=== PATIENT | male | born 1970 | race American Indian/Alaskan Native ===

== ENCOUNTER 2018-07-05 15:19 | Emergency (ER) | payer SELFPAY ==
[2018-07-05] MEDS ORDERED: Bacitracin Oint 1 GM U/D Packet TOP ONE (15:31)
[2018-07-05] MEDS ORDERED: Lidocaine 1% 30 ML SDV INJECT ONE (15:31)
[2018-07-05] MEDS ORDERED: Diphtheria,Pertussis(Acell),Tetanus Vaccine 0.5 ML SDV IM ONE (15:31)
--- NOTE | 2018-07-05 17:43 | EDM.PDOC ---
Scribed by Ros Cruz 07/05/18 [id number] for Bashir Poe MD ED HPI GENERAL MEDICAL PROBLEM - General Chief Complaint: Trauma Stated Complaint: FALL Time Seen by Provider: 07/05/18 15:21 Source of Information: Reports: Patient, EMS, EMS Notes Reviewed, RN, RN Notes Reviewed History Limitations: Reports: No Limitations - History of Present Illness INITIAL COMMENTS - FREE TEXT/NARRATIVE: Patient presents to ER by [facility]. Patient tripped and fell on the side walk. He says that he was walking home from [place] after playing horseshoes and drinking alcohol. Denies loss of consciousness. Patient states he wanted to go home but the ambulance made him come here because he was drunk. He denies any other injury. Date of last tetenus is unknown but patient believes it is greater than 10 years. Pt arrived without C-collar or spinal immobilization. GCS 15 on arrival. *Pt refused to wear C-collar when requested by RN and myself. Onset: Unknown/Unsure Location: Reports: Face Quality: Reports: Ache Severity: Mild Improves with: Reports: None Worsens with: Reports: None Associated Symptoms: Reports: No Other Symptoms - Related Data Allergies Allergy/AdvReac Type Severity Reaction Status Date / Time No Known Allergies Allergy Verified 07/05/18 15:23 Past Medical History - Past Health History Medical/Surgical History: Denies Medical/Surgical History Social & Family History - Family History Family Medical History: Noncontributory - Tobacco Use Smoking Status *Q: Current Some Day Smoker - Alcohol Use Alcohol Use History: Yes Alcohol Use Frequency: Binges - Living Situation & Occupation Living situation: Reports: Single, Alone Occupation: Disabled Review of Systems - Review of Systems Review Of Systems: ROS reveals no pertinent complaints other than HPI. ED EXAM, GENERAL - Physical Exam Exam: See Below Exam Limited By: Intoxication General Appearance: Alert, WD/WN, No Apparent Distress Eye Exam: Bilateral Eye: EOMI, Normal Inspection, PERRL Ears: Normal External Exam, Normal Canal, Hearing Grossly Normal, Normal TMs Nose: Normal Inspection, Normal Mucosa, No Blood Throat/Mouth: Normal Inspection, Normal Lips, Normal Teeth, Normal Gums, Normal Oropharynx, Normal Voice, No Airway Compromise Head: Normocephalic, Other (facial abrasion at left forehead, 2cm linear lac. to depth of subcutaneous tissue at Rt zygomal face w/no active bleeding and no FB) Neck: Normal Inspection, Supple, Non-Tender, Full Range of Motion Respiratory/Chest: No Respiratory Distress, Lungs Clear, Normal Breath Sounds, No Accessory Muscle Use, Chest Non-Tender Cardiovascular: Regular Rate, Rhythm GI/Abdominal: Normal Bowel Sounds, Soft, Non-Tender, No Distention Back Exam: Normal Inspection Extremities: Normal Inspection, Normal Range of Motion, Non-Tender, No Pedal Edema Neurological: Alert, Oriented, CN II-XII Intact, Normal Cognition, No Motor/ Sensory Deficits, Other (GCS 15 at 1 hour and at discharge.) Psychiatric: Normal Affect, Normal Mood Skin Exam: Warm, Dry ED TRAUMA PROCEDURES - Laceration/Wound Repair Right Lateral Face Lac/Wound Length In cm: 2 Appearance: Subcutaneous, Linear, Clean Distal NVT: Neuro & Vascular Intact Anesthetic Type: Local Local Anesthesia - Lidocaine (Xylocaine): 1% Plain Local Anesthetic Volume: 5cc Skin Prep: Chlorhexidine (Hibiciens), Saline Exploration/Debridement/Repair: Wound Explored Closed With: Sutures Suture Size: 4-0 # of Sutures: 6 Suture Type: Nylon, Running Drain Placement: No Sterile Dressing Applied: Nurse Tetanus Status Addressed: Yes Complications: No Course - Vital Signs Last Recorded V/S: Last Vital Signs Temp 36.8 C 07/05/18 15:25 Pulse 100 07/05/18 15:25 Resp 18 07/05/18 15:25 BP 128/71 07/05/18 15:25 Pulse Ox 90 L 07/05/18 15:25 - Orders/Labs/Meds Orders: Active Orders 24 hr Category Date Time Status Vaccines to be Administered [RC] PER UNIT ROUTINE Care 07/05/18 15:31 Active Labs: Laboratory Tests 07/05/18 Range/Units 16:27 Ethyl Alcohol 422 mg/dL Meds: Medications Discontinued Medications Generic Name Dose Route Start Last Admin Trade Name Freq PRN Reason Stop Dose Admin Bacitracin 1 dose 07/05/18 15:31 07/05/18 15:45 Bacitracin Oint 1 Gm TOP 07/05/18 15:32 1 dose ONETIME ONE Administration Diphtheria/Tetanus/Acell Pertussis 0.5 ml 07/05/18 15:31 07/05/18 15:41 Adacel IM 07/05/18 15:32 0.5 ml .ONCE ONE Administration Lidocaine HCl 30 ml 07/05/18 15:31 07/05/18 15:45 Xylocaine-Mpf 1% INJECT 07/05/18 15:32 30 ml ONETIME ONE Administration - Radiology Interpretation Free Text/Narrative:: CT head, CT maxillofacial, CT c-spine: No acute findings. See rad report. - Re-Assessments/Exams Free Text/Narrative Re-Assessment/Exam: 07/05/18 17:42 Despite high blood EtOH pt is appropriately conversant, using his cell phone without difficulty, walking steadily, and making rational decisions. Pt will be d/c'd to home if he can product a sober person to drive him and ensure his safety until he is sober. Departure - Departure Time of Disposition: 17:27 Disposition: Home, Self-Care 01 Condition: Good Clinical Impression: Abrasions of multiple sites Laceration of face Qualifiers: Encounter type: initial encounter Qualified Code(s): S01.81XA - Laceration without foreign body of other part of head, initial encounter Alcohol intoxication Qualifiers: Complication of substance-induced condition: uncomplicated Qualified Code(s): F10.920 - Alcohol use, unspecified with intoxication, uncomplicated Minor head injury without loss of consciousness Qualifiers: Encounter type: initial encounter Qualified Code(s): S09.90XA - Unspecified injury of head, initial encounter - Discharge Information Instructions: Facial Laceration, Alcohol Intoxication, [id number] Forms: ED Department Discharge Additional Instructions: Do not drink any more alcohol today. Follow up in clinic in 7 to 10 days for suture removal. - My Orders Last 24 Hours: My Active Orders 07/05/18 15:31 Vaccines to be Administered [RC] PER UNIT ROUTINE - Assessment/Plan Last 24 Hours: My Active Orders 07/05/18 15:31 Vaccines to be Administered [RC] PER UNIT ROUTINE I have read and agree with the documentation that has been completed regarding this visit. By signing this record, I attest that the documentation was completed in my physical presence and is an accurate record of the encounter.
== END 2018-07-05 18:18 | disposition home or self-care (01) ==
LOC: DL.ED 15:19
DX: S09.90XA Unspecified injury of head, initial encounter (principal); S01.81XA Laceration without foreign body of other part of head, initial encounter; F10.120 Alcohol abuse with intoxication, uncomplicated; Y90.8 Blood alcohol level of 240 mg/100 ml or more; Z23 Encounter for immunization; F17.200 Nicotine dependence, unspecified, uncomplicated; W01.0XXA Fall on same level from slipping, tripping and stumbling without subsequent striking against object, initial encounter
CPT/HCPCS: 12011; 36415; 70450; 70486; 72125; 90471; 90715; 99283; 99285; G0480

== ENCOUNTER 2020-09-22 17:58 | Emergency (ER) | payer OTHER ==
--- NOTE | 2020-09-22 18:30 | EDM.PDOC ---
<Ronit Waddell - Last Filed: 09/22/20 18:39> ED HPI GENERAL MEDICAL PROBLEM - General Chief Complaint: ENT Problem Stated Complaint: TOP LEFT TOOTH BLEEDING Time Seen by Provider: 09/22/20 18:15 Source of Information: Reports: Patient, RN, RN Notes Reviewed History Limitations: Reports: No Limitations - History of Present Illness INITIAL COMMENTS - FREE TEXT/NARRATIVE: pt arrives to ED with complaint of dental bleed. reports having top four front teeth extracted at [facility]. since then has had increased bleeding. has been using gauze with pressure, but clots that build up keep breaking away. has not called his dentist. denies pain, reports waking with blood saturated pillow. Onset: Gradual Onset Date: 09/19/20 Location: Reports: Face Severity: Moderate Associated Symptoms: Reports: No Other Symptoms - Related Data Allergies Allergy/AdvReac Type Severity Reaction Status Date / Time No Known Allergies Allergy Verified 11/11/18 11:22 Home Meds: Home Meds Metoprolol Tartrate 50 mg PO BID 11/11/18 [History] Pantoprazole [ProTONIX] 40 mg PO ACBREAKFAST tab.cr 11/11/18 [Rx] Potassium Chloride [Klor-Con 10] 20 meq PO BIDMEALS tab.er 11/11/18 [Rx] cefTRIAXone [Rocephin] 1 gm IV Q24H vial 11/11/18 [Rx] diphenhydrAMINE [Benadryl] 25 mg PO BEDTIME PRN 11/11/18 [History] hydrOXYzine HCL [hydrOXYzine] 50 mg PO DAILY PRN 11/11/18 [History] Aspirin 81 mg PO 09/22/20 [History] Past Medical History - Past Health History Medical/Surgical History: Denies Medical/Surgical History HEENT History: Reports: Impaired Vision Cardiovascular History: Reports: Hypertension Respiratory History: Reports: None Gastrointestinal History: Reports: GERD Genitourinary History: Reports: None Musculoskeletal History: Reports: Fracture Neurological History: Reports: None Psychiatric History: Reports: Addiction, Anxiety, Depression, Panic Attack Endocrine/Metabolic History: Reports: None Hematologic History: Reports: None Immunologic History: Reports: None Oncologic (Cancer) History: Reports: None Dermatologic History: Reports: Eczema - Infectious Disease History Infectious Disease History: Reports: None - Past Surgical History Head Surgeries/Procedures: Reports: None Social & Family History - Family History Family Medical History: Noncontributory - Tobacco Use Tobacco Use Status *Q: Never Tobacco User Second Hand Smoke Exposure: No - Caffeine Use Caffeine Use: Reports: Coffee Caffeine Use Comment: Drinks a soda very seldom - Recreational Drug Use Recreational Drug Use: No - Living Situation & Occupation Living situation: Reports: Single, Alone Occupation: Disabled ED ROS ENT - Review of Systems Review Of Systems: Comprehensive ROS is negative, except as noted in HPI. Constitutional: Reports: No Symptoms Respiratory: Reports: No Symptoms Cardiovascular: Reports: No Symptoms Endocrine: Reports: No Symptoms GI/Abdominal: Reports: No Symptoms. Denies: Vomiting : Reports: No Symptoms Musculoskeletal: Reports: No Symptoms Skin: Reports: No Symptoms Neurological: Reports: No Symptoms Psychiatric: Reports: No Symptoms Hematologic/Lymphatic: Reports: No Symptoms Immunologic: Reports: No Symptoms ED EXAM, ENT - Physical Exam Exam: See Below Exam Limited By: No Limitations General Appearance: Alert, WD/WN, No Apparent Distress Eye Exam: Bilateral Eye: EOMI Ears: Normal External Exam Nose: Normal Inspection Mouth/Throat: Bleeding, Dental Trauma, Other (bleeding to upper front gums at site of dental extractions.) Head: Atraumatic, Normocephalic Neck: Normal Inspection Respiratory/Chest: No Respiratory Distress, Lungs Clear, Normal Breath Sounds Cardiovascular: Normal Peripheral Pulses, Regular Rate, Rhythm, No Edema GI/Abdominal: Normal Bowel Sounds (Male) Exam: Deferred Rectal (Males) Exam: Deferred Extremities: Normal Inspection, Normal Range of Motion Neurological: Alert, Oriented, Normal Cognition, Normal Gait Psychiatric: Normal Affect, Normal Mood Skin: Warm, Dry, Intact, Normal Color, No Rash Lymphatic: No Adenopathy Departure - Departure Disposition: Home, Self-Care 01 Clinical Impression: Status post tooth extraction, Hemorrhage of tooth socket - Discharge Information Forms: ED Department Discharge Additional Instructions: 1) avoid hot foods or drinks next 24 hours 2) recheck as needed 3) have cold foods or baby foods Sepsis Event Note (ED) - Evaluation Sepsis Screening Result: No Definite Risk <Donte España - Last Filed: 09/22/20 21:31> ED ENT PROCEDURES - Additional/Other Procedure(s) Other (Free Text) Procedure(s): re-exam; persistent oozing 1) viscous lido applied to oozing sockets 2) AgNo3 cautery without problem 3) merocel packing with 2x2 applied Course - Vital Signs Last Recorded V/S: Last Vital Signs Temp 36.4 C 09/22/20 18:14 Pulse 78 09/22/20 18:14 Resp 16 09/22/20 18:14 BP 120/65 09/22/20 18:14 Pulse Ox 98 09/22/20 18:14 - Orders/Labs/Meds Labs: Laboratory Tests 09/22/20 09/22/20 09/22/20 Range/Units 19:10 19:10 19:10 WBC 7.4 (5.0-10.0) 10^3/uL RBC 3.85 L (4.6-6.2) 10^6/uL Hgb 12.7 L D (14.0-18.0) g/dL Hct 37.5 L (40.0-54.0) % MCV 97.4 (80-100) fL MCH 33.0 (27.0-34.0) pg MCHC 33.9 (33.0-35.0) g/dL Plt Count 98 L (150-450) 10^3/uL Neut % (Auto) 44.4 (42.2-75.2) % Lymph % (Auto) 42.2 (20.5-50.1) % [place] % (Auto) 9.6 H (2-8) % Eos % (Auto) 3.3 H (1.0-3.0) % Baso % (Auto) 0.5 (0.0-1.0) % PT 13.3 H (9.0-12.0) SEC INR 1.4 H (0.9-1.2) APTT 30.6 (22.0-34.0) SEC Sodium 140 (136-145) mmol/L Potassium 4.4 (3.5-5.1) mmol/L Chloride 107 (98-107) mmol/L Carbon Dioxide 27 (21-32) mmol/L Anion Gap 10.4 (7-13) mEq/L BUN 14 (7-18) mg/dL Creatinine 0.69 L (0.70-1.30) mg/dL Est Cr Clr Drug Dosing 122.54 mL/min Estimated GFR (MDRD) > 60 BUN/Creatinine Ratio 20.3 (No establ ref range) Glucose 107 H (74-99) mg/dL Calcium 8.6 (8.5-10.1) mg/dL Total Bilirubin 1.5 H (0.2-1.0) mg/dL AST 129 H (15-37) U/L ALT 119 H (16-63) U/L Alkaline Phosphatase 136 H (46-116) U/L Total Protein 6.6 (6.4-8.2) g/dL Albumin 2.4 L (3.4-5.0) g/dL Globulin 4.2 Albumin/Globulin Ratio 0.57 Meds: Medications Discontinued Medications Generic Name Dose Route Start Last Admin Trade Name Freq PRN Reason Stop Dose Admin Lidocaine HCl 15 ml 09/22/20 20:37 09/22/20 20:45 Xylocaine 2% Viscous PO 09/22/20 20:38 15 ml ONETIME ONE Administration Silver Nitrate 4 each 09/22/20 20:37 09/22/20 20:45 Silver Nitrate TOP 09/22/20 20:38 4 each ONETIME ONE Administration Tranexamic Acid 500 mg 09/22/20 18:19 09/22/20 18:30 Cyklokapron TOP 09/22/20 18:20 500 mg ONETIME ONE Administration - Re-Assessments/Exams Free Text/Narrative Re-Assessment/Exam: 09/22/20 19:03 re-exam; miinimal oozing. pt not happy and spat out anti-coag packing. area repacked with merocel + 4x4. pt told to gently bite down to compress dressing to stop bleeding. 09/22/20 21:28 re-exam; no further bleeding. pt happy now. Departure - Departure Time of Disposition: 21:29 Condition: Good Sepsis Event Note (ED) - Focused Exam Vital Signs: Vital Signs Temp Pulse Resp BP Pulse Ox 09/22/20 18:14 36.4 C 78 16 120/65 98
[2020-09-22 19:36] LABS: ANION GAP 10.4 mEq/L (7-13); CHLORIDE,CL 107 mmol/L (98-107); SODIUM,NA 140 mmol/L (136-145)
[2020-09-22 20:06] LABS: PTT,PARTIAL THROMBOPLSTIN TIME 30.6 SEC (22.0-34.0)
[2020-09-22] MEDS ORDERED: Silver Nitrate Applicator Each TOP ONE (20:37)
[2020-09-22] MEDS ORDERED: Lidocaine 2% Viscous Solution 15 ML Cup PO ONE (20:37)
== END 2020-09-22 21:34 | disposition home or self-care (01) ==
LOC: DL.ED 17:58
DX: K91.840 Postprocedural hemorrhage of a digestive system organ or structure following a digestive system procedure (principal); I10 Essential (primary) hypertension; K21.9 Gastro-esophageal reflux disease without esophagitis; Z79.899 Other long term (current) drug therapy
CPT/HCPCS: 36415; 80053; 85025; 85610; 85730; 99282; 99283; A9270

== ENCOUNTER 2020-12-09 07:44 | Observation (INO) | payer OTHER ==
[~2020-12-09 07:44] MED LIST: Ondansetron 4 MG/2 ML SDV IV ONE
[2020-12-09] MEDS ORDERED: Sodium Chloride 0.9% 1,000 ML IV ONE (08:10)
--- NOTE | 2020-12-09 08:10 | EDM.PDOC ---
ED HPI GENERAL MEDICAL PROBLEM - General Chief Complaint: Gastrointestinal Problem Time Seen by Provider: 12/09/20 08:10 Source of Information: Reports: Patient, EMS, EMS Notes Reviewed, RN, RN Notes Reviewed History Limitations: Reports: No Limitations - History of Present Illness INITIAL COMMENTS - FREE TEXT/NARRATIVE: Patient is a 50-year-old male who presents to ER per [place] [facility] with complaint of generalized not feeling well. Patient states he has not been feeling well for the past 2 days. States he has not had any alcohol to drink for several weeks, states he does not drink on a regular basis. Patient states he did have a bloody nose earlier in the day, and today when he vomited did have a small amount of blood in the vomit. Otherwise has been vomiting bile for the past 2 days. Patient also complains of body aches, and states he has never felt this terrible in his life. Patient is unsure of when his last bowel movement was, states there was no blood in it. Denies any chest pains or shortness of breath, diarrhea, fever or chills. Patient states he is homeless, and states there is no one to take care of him. Onset: Gradual Onset Date: 12/07/20 - Related Data Allergies Allergy/AdvReac Type Severity Reaction Status Date / Time No Known Allergies Allergy Verified 12/09/20 07:47 Home Meds: Home Meds . [No Known Home Meds] 12/09/20 [History] Past Medical History - Past Health History Medical/Surgical History: Denies Medical/Surgical History HEENT History: Reports: Impaired Vision Cardiovascular History: Reports: Hypertension Respiratory History: Reports: None Gastrointestinal History: Reports: GERD Genitourinary History: Reports: None Musculoskeletal History: Reports: Fracture Neurological History: Reports: None Psychiatric History: Reports: Addiction, Anxiety, Depression, Panic Attack Endocrine/Metabolic History: Reports: None Hematologic History: Reports: None Immunologic History: Reports: None Oncologic (Cancer) History: Reports: None Dermatologic History: Reports: Eczema - Infectious Disease History Infectious Disease History: Reports: None - Past Surgical History Head Surgeries/Procedures: Reports: None Social & Family History - Family History Family Medical History: No Pertinent Family History - Tobacco Use Tobacco Use Status *Q: Never Tobacco User - Caffeine Use Caffeine Use: Reports: Coffee Caffeine Use Comment: Drinks a soda very seldom - Alcohol Use Days Per Week of Alcohol Use: 1 Number of Drinks Per Day: 3 Total Drinks Per Week: 3 - Recreational Drug Use Recreational Drug Use: No - Living Situation & Occupation Living situation: Reports: Single, Alone Occupation: Disabled ED ROS GENERAL - Review of Systems Review Of Systems: Comprehensive ROS is negative, except as noted in HPI. ED EXAM, GI/ABD - Physical Exam Exam: See Below Exam Limited By: No Limitations General Appearance: Alert, WD/WN, Anxious Eyes: Bilateral: Normal Appearance, EOMI Ears: Normal External Exam, Hearing Grossly Normal Nose: Other (dried blood) Throat/Mouth: Normal Inspection, Normal Lips, Normal Teeth, Normal Gums, Normal Oropharynx, Normal Voice, No Airway Compromise Head: Atraumatic, Normocephalic Neck: Normal Inspection, Supple, Non-Tender, Full Range of Motion Respiratory/Chest: No Respiratory Distress, Lungs Clear, Normal Breath Sounds, No Accessory Muscle Use, Chest Non-Tender Cardiovascular: Normal Peripheral Pulses, Regular Rate, Rhythm, No Edema, No Gallop, No JVD, No Murmur, No Rub GI/Abdominal Exam: Normal Bowel Sounds, Soft, Distended, Tender (generalized) (Male) Exam: Deferred Rectal (Males) Exam: Deferred Back Exam: Normal Inspection, Full Range of Motion, NT Extremities: Normal Inspection, Normal Range of Motion, Non-Tender, No Pedal Edema Neurological: Alert, Oriented, Normal Cognition, No Motor/Sensory Deficits Psychiatric: Normal Affect, Normal Mood, Anxious Skin Exam: Pallor Lymphatic: No Adenopathy Course - Vital Signs Last Recorded V/S: Last Vital Signs Temp 99 F 12/09/20 07:45 Pulse 101 H 12/09/20 09:00 Resp 16 12/09/20 09:00 BP 179/92 H 12/09/20 09:00 Pulse Ox 96 12/09/20 09:00 - Orders/Labs/Meds Orders: Active Orders 24 hr Category Date Time Status EKG Documentation Completion [RC] STAT Care 12/09/20 07:41 Active REFLEX LACTIC ACID YES OR NO [CHEM] Routine Lab 12/09/20 08:42 Received UA W/KAL RFLX IF INDICATED [URIN] Stat Lab 12/09/20 11:00 Received Magnesium Sulfate/D5W [Magnesium Sulfate in D5W 100 Med 12/09/20 10:52 Active Premix] 1 gm in 100 ml IV ONETIME Sodium Chloride 0.9% [Normal Saline] 1,000 ml Med 12/09/20 08:10 Active IV CONTINUOUS Isolation [COMM] Routine Oth 12/09/20 07:41 Active Medication Orders Sodium Chloride (Normal Saline) 1,000 mls @ 250 mls/hr IV CONTINUOUS ONE Stop: 12/09/20 12:09 Last Admin: 12/09/20 08:20 Dose: 250 mls/hr Documented by: GLORIA Magnesium Sulfate/Dextrose (Magnesium Sulfate In D5w 100 Premix) 1 gm in 100 mls @ 100 mls/hr IV ONETIME ONE Stop: 12/09/20 11:51 Last Admin: 12/09/20 11:00 Dose: 100 mls/hr Documented by: GLORIA Labs: Laboratory Tests 12/09/20 12/09/20 12/09/20 Range/Units 07:41 08:03 08:03 WBC 4.1 L (5.0-10.0) 10^3/uL RBC 4.12 L (4.6-6.2) 10^6/uL Hgb 11.2 L D (14.0-18.0) g/dL Hct 33.4 L (40.0-54.0) % MCV 81.1 D (80-100) fL MCH 27.2 (27.0-34.0) pg MCHC 33.5 (33.0-35.0) g/dL Plt Count 34 L* (150-450) 10^3/uL Neut % (Auto) 55.2 (42.2-75.2) % Lymph % (Auto) 24.5 (20.5-50.1) % Titus % (Auto) 18.4 H (2-8) % Eos % (Auto) 1.2 (1.0-3.0) % Baso % (Auto) 0.7 (0.0-1.0) % PT (9.0-12.0) SEC INR (0.9-1.2) Sodium 136 (136-145) mmol/L Potassium 3.3 L (3.5-5.1) mmol/L Chloride 99 (98-107) mmol/L Carbon Dioxide 24 (21-32) mmol/L Anion Gap 16.3 H (7-13) mEq/L BUN 7 (7-18) mg/dL Creatinine 0.80 (0.70-1.30) mg/dL Est Cr Clr Drug Dosing 105.69 mL/min Estimated GFR (MDRD) > 60 BUN/Creatinine Ratio 8.8 (No establ ref range) Glucose 116 H (74-99) mg/dL Lactic Acid (0.4-2.0) mmol/L Calcium 8.4 L (8.5-10.1) mg/dL Magnesium 1.5 L (1.8-2.4) mg/dL Total Bilirubin 2.4 H (0.2-1.0) mg/dL AST 83 H (15-37) U/L ALT 55 (16-63) U/L Alkaline Phosphatase 117 H (46-116) U/L C-Reactive Protein 0.8 (0.0-0.9) mg/dL Total Protein 7.8 (6.4-8.2) g/dL Albumin 3.2 L (3.4-5.0) g/dL Globulin 4.6 Albumin/Globulin Ratio 0.70 Amylase 63 (25-115) U/L Lipase 103 (73-393) U/L Ethyl Alcohol (0) mg/dL Influenza Type A RNA Negative (NEGATIVE) Influenza Type B RNA Negative (NEGATIVE) SARS-CoV-2 RNA (IRINEO) Negative (NEGATIVE) 12/09/20 12/09/20 12/09/20 Range/Units 08:03 08:03 08:03 WBC (5.0-10.0) 10^3/uL RBC (4.6-6.2) 10^6/uL Hgb (14.0-18.0) g/dL Hct (40.0-54.0) % MCV (80-100) fL MCH (27.0-34.0) pg MCHC (33.0-35.0) g/dL Plt Count (150-450) 10^3/uL Neut % (Auto) (42.2-75.2) % Lymph % (Auto) (20.5-50.1) % Titus % (Auto) (2-8) % Eos % (Auto) (1.0-3.0) % Baso % (Auto) (0.0-1.0) % PT 13.5 H (9.0-12.0) SEC INR 1.4 H (0.9-1.2) Sodium (136-145) mmol/L Potassium (3.5-5.1) mmol/L Chloride (98-107) mmol/L Carbon Dioxide (21-32) mmol/L Anion Gap (7-13) mEq/L BUN (7-18) mg/dL Creatinine (0.70-1.30) mg/dL Est Cr Clr Drug Dosing mL/min Estimated GFR (MDRD) BUN/Creatinine Ratio (No establ ref range) Glucose (74-99) mg/dL Lactic Acid 2.4 H* (0.4-2.0) mmol/L Calcium (8.5-10.1) mg/dL Magnesium (1.8-2.4) mg/dL Total Bilirubin (0.2-1.0) mg/dL AST (15-37) U/L ALT (16-63) U/L Alkaline Phosphatase (46-116) U/L C-Reactive Protein (0.0-0.9) mg/dL Total Protein (6.4-8.2) g/dL Albumin (3.4-5.0) g/dL Globulin Albumin/Globulin Ratio Amylase (25-115) U/L Lipase (73-393) U/L Ethyl Alcohol < 3 (0) mg/dL Influenza Type A RNA (NEGATIVE) Influenza Type B RNA (NEGATIVE) SARS-CoV-2 RNA (IRINEO) (NEGATIVE) Meds: Medications Generic Name Dose Route Start Last Admin Trade Name Freq PRN Reason Stop Dose Admin Sodium Chloride 1,000 mls @ 250 mls/hr 12/09/20 08:10 12/09/20 08:20 Normal Saline IV 12/09/20 12:09 250 mls/hr CONTINUOUS ONE Administration Magnesium Sulfate/Dextrose 1 gm in 100 mls @ 100 mls/hr 12/09/20 10:52 12/09/20 11:00 Magnesium Sulfate In D5w 100 Premix IV 12/09/20 11:51 100 mls/hr ONETIME ONE Administration Discontinued Medications Generic Name Dose Route Start Last Admin Trade Name Freq PRN Reason Stop Dose Admin Iopamidol 100 ml 12/09/20 09:18 12/09/20 09:40 Isovue-300 (61%) IVPUSH 12/09/20 09:19 100 ml ONETIME ONE Administration Ondansetron HCl 4 mg 12/09/20 07:39 12/09/20 07:58 Zofran IV 12/09/20 07:40 4 mg ONETIME ONE Administration - Radiology Interpretation Free Text/Narrative:: CT of Abdomen/Pelvis with contrast: Addendum created by Bharti Murguia MD on 12/09/2020 10:23 AM Central Time ([place] & [place]): THIS REPORT CONTAINS FINDINGS THAT MAY BE CRITICAL TO PATIENT CARE. The findings were verbally communicated via telephone conference with Genesis Meléndez at 10:05 AM MINE ENGINEERING MANAGER on 12/09/2020. The findings were acknowledged and understood. Initial Report created on 12/09/2020 10:23 AM Central Time ([place] & [place]): PROCEDURE INFORMATION: Exam: CT Abdomen And Pelvis With Contrast Exam date and time: 12/09/2020 9:35 AM Age: 50 years old Clinical indication: Abdominal pain TECHNIQUE: Imaging protocol: Computed tomography of the abdomen and pelvis with intravenous contrast. Radiation optimization: All CT scans at this facility use at least one of these dose optimization techniques: automated exposure control; mA and/or kV adjustment per patient size (includes targeted exams where dose is matched to clinical indication); or iterative reconstruction. Contrast material: ISOVUE 300; Contrast volume: 99 ml; Contrast route: INTRAVENOUS (IV); COMPARISON: No relevant prior studies available. FINDINGS: Mediastinal space: Small hiatal hernia. Liver: Irregular hepatic contour. Hepatic sagittal length 12 cm. There is a diffuse decrease in hepatic parenchymal density, consistent with advanced fatty infiltration. There is recannulization of the umbilical vein with anterior abdominal varices. Gallbladder and bile ducts: Small gallstones at the gallbladder neck. No ductal dilation. Pancreas: Normal. No ductal dilation. Spleen: Sagittal length 9.2 cm. Normal. No splenomegaly. Adrenal glands: Left adrenal hyperplasia or underlying adrenal mass. Normal right adrenal. Kidneys and ureters: Left anterior lower pole 4.7 x 4.9 x 5.7 cm solid complex mass (38 and 48 HU) with lower pole partially circumferential calcifications. 7.5 mm left midpole renal hypodensity too small to accurately assess, statistically compatible with renal cyst. Normal right kidney. No hydronephrosis. Stomach and bowel: Colonic gas-filled loops with nonspecific air-fluid levels. Mild to moderate rectal sigmoid stool load. No obstruction. Normal stomach. No mucosal thickening. Appendix: No evidence of appendicitis. Intraperitoneal space: Unremarkable. No free air. No significant fluid collection. Vasculature: Normal opacification of the portal vein. No superior mesenteric vein thrombosis. No abdominal aortic aneurysm. Lymph nodes: Unremarkable. No enlarged lymph nodes. Urinary bladder: Unremarkable as visualized. Reproductive: Unremarkable as visualized. Bones/joints: L5-S1 degenerative disc disease. Thoracolumbar bridging spondylosis. Multilevel L3- S1 spondylitic changes. No acute fracture. Soft tissues: Unremarkable. IMPRESSION: 1. Cirrhotic liver disease, recannulization of the umbilical vein and abdominal varices compatible with portal hypertension. No ascites. 2. Left 5.7 cm solid complex renal mass. Differential includes renal carcinoma or neoplasm. Recommend further characterization with renal MRI w/wo contrast. 3. Left adrenal gland hyperplasia or neoplasm. Correlate with MRI. 4. Rectosigmoid stool with proximal colonic dilated bowel loops. Correlate for constipation. Thank you for allowing us to participate in the care of your patient. Dictated and Authenticated by: Bharti Sanchez MD 12/09/2020 10:23 AM Central Time ([place] & [place]) See rad report - Re-Assessments/Exams Free Text/Narrative Re-Assessment/Exam: 12/09/20 11:11 Discussed patient case with Dr. Cortes at the [facility] who states they have no ENT, so he would like the patient transferred elsewhere. Discussed the patient case with Dr. Taylor who states the patient can be hospitalized in [place] as long as approved by Dr. Bob. Discussed patient case with Dr. Bob who agreed to accept the patient for observation admission. Departure - Departure Time of Disposition: 11:14 Disposition: Refer to Observation Condition: Fair Clinical Impression: Chronic liver disease and cirrhosis, Portal hypertension, Intra-abdominal varices, Left renal mass Constipation Qualifiers: Constipation type: unspecified constipation type Qualified Code(s): K59.00 - Constipation, unspecified - Discharge Information *PRESCRIPTION DRUG MONITORING PROGRAM REVIEWED*: No *COPY OF PRESCRIPTION DRUG MONITORING REPORT IN PATIENT MARKOS: No Forms: ED Department Discharge Sepsis Event Note (ED) - Evaluation Sepsis Screening Result: No Definite Risk - Focused Exam Vital Signs: Vital Signs Temp Pulse Resp BP Pulse Ox 12/09/20 09:00 101 H 16 179/92 H 96 12/09/20 07:45 99 F 101 H 16 156/84 H 97 - My Orders Last 24 Hours: My Active Orders 12/09/20 07:41 EKG Documentation Completion [RC] STAT Isolation [COMM] Routine 12/09/20 08:10 Sodium Chloride 0.9% [Normal Saline] 1,000 ml IV CONTINUOUS 12/09/20 08:42 REFLEX LACTIC ACID YES OR NO [CHEM] Routine 12/09/20 10:52 Magnesium Sulfate/D5W [Magnesium Sulfate in D5W 100 Premix] 1 gm in 100 ml IV ONETIME 12/09/20 11:00 UA W/KAL RFLX IF INDICATED [URIN] Stat - Assessment/Plan Last 24 Hours: My Active Orders 12/09/20 07:41 EKG Documentation Completion [RC] STAT Isolation [COMM] Routine 12/09/20 08:10 Sodium Chloride 0.9% [Normal Saline] 1,000 ml IV CONTINUOUS 12/09/20 08:42 REFLEX LACTIC ACID YES OR NO [CHEM] Routine 12/09/20 10:52 Magnesium Sulfate/D5W [Magnesium Sulfate in D5W 100 Premix] 1 gm in 100 ml IV ONETIME 12/09/20 11:00 UA W/KAL RFLX IF INDICATED [URIN] Stat
[2020-12-09 08:32] LABS: ANION GAP 16.3 mEq/L (7-13); CHLORIDE,CL 99 mmol/L (98-107); SODIUM,NA 136 mmol/L (136-145)
[2020-12-09 08:35] LABS: CORONAVIRUS COVID-19 NAA NEGATIVE (NEGATIVE)
[2020-12-09] MEDS ORDERED: Iopamidol 612 MG/ML 100 ML Bottle IVPUSH ONE (09:18)
--- NOTE | 2020-12-09 10:23 | CT ---
PROCEDURE INFORMATION: Exam: CT Abdomen And Pelvis With Contrast Exam date and time: 12/09/2020 9:35 AM Age: 50 years old Clinical indication: Abdominal pain TECHNIQUE: Imaging protocol: Computed tomography of the abdomen and pelvis with intravenous contrast. Radiation optimization: All CT scans at this facility use at least one of these dose optimization techniques: automated exposure control; mA and/or kV adjustment per patient size (includes targeted exams where dose is matched to clinical indication); or iterative reconstruction. Contrast material: ISOVUE 300; Contrast volume: 99 ml; Contrast route: INTRAVENOUS (IV); COMPARISON: No relevant prior studies available. FINDINGS: Mediastinal space: Small hiatal hernia. Liver: Irregular hepatic contour. Hepatic sagittal length 12 cm. There is a diffuse decrease in hepatic parenchymal density, consistent with advanced fatty infiltration. There is recannulization of the umbilical vein with anterior abdominal varices. Gallbladder and bile ducts: Small gallstones at the gallbladder neck. No ductal dilation. Pancreas: Normal. No ductal dilation. Spleen: Sagittal length 9.2 cm. Normal. No splenomegaly. Adrenal glands: Left adrenal hyperplasia or underlying adrenal mass. Normal right adrenal. Kidneys and ureters: Left anterior lower pole 4.7 x 4.9 x 5.7 cm solid complex mass (38 and 48 HU) with lower pole partially circumferential calcifications. 7.5 mm left midpole renal hypodensity too small to accurately assess, statistically compatible with renal cyst. Normal right kidney. No hydronephrosis. Stomach and bowel: Colonic gas-filled loops with nonspecific air-fluid levels. Mild to moderate rectal sigmoid stool load. No obstruction. Normal stomach. No mucosal thickening. Appendix: No evidence of appendicitis. Intraperitoneal space: Unremarkable. No free air. No significant fluid collection. Vasculature: Normal opacification of the portal vein. No superior mesenteric vein thrombosis. No abdominal aortic aneurysm. Lymph nodes: Unremarkable. No enlarged lymph nodes. Urinary bladder: Unremarkable as visualized. Reproductive: Unremarkable as visualized. Bones/joints: L5-S1 degenerative disc disease. Thoracolumbar bridging spondylosis. Multilevel L3-S1 spondylitic changes. No acute fracture. Soft tissues: Unremarkable. IMPRESSION: 1. Cirrhotic liver disease, recannulization of the umbilical vein and abdominal varices compatible with portal hypertension. No ascites. 2. Left 5.7 cm solid complex renal mass. Differential includes renal carcinoma or neoplasm. Recommend further characterization with renal MRI w/wo contrast. 3. Left adrenal gland hyperplasia or neoplasm. Correlate with MRI. 4. Rectosigmoid stool with proximal colonic dilated bowel loops. Correlate for constipation.
[2020-12-09] MEDS ORDERED: Magnesium Sulfate/D5W 1 GM/100 ML BAG IV ONE (10:52)
[2020-12-09] MEDS ORDERED: LORazepam 2 MG/ML SDV IVPUSH PRN (13:26)
[2020-12-09] MEDS ORDERED: LORazepam 0.5 MG Tab PO PRN (13:26)
[2020-12-09] MEDS ORDERED: Docusate Sodium 100 MG Cap PO PRN (13:27)
[2020-12-09] MEDS ORDERED: Temazepam 15 MG Cap PO PRN (13:27)
[2020-12-09] MEDS ORDERED: Ondansetron 4 MG/2 ML SDV IVPUSH PRN (13:27)
[2020-12-09] MEDS ORDERED: Ondansetron 4 MG Tab.DIS PO PRN (13:27)
[2020-12-09] MEDS ORDERED: Potassium Chloride 10 MEQ Tab.ER PO ONE (13:33)
[2020-12-09] MEDS ORDERED: Lactulose Soln 10 GM/15 ML 30 ML UD Cup PO ONE (13:35)
--- NOTE | 2020-12-09 13:41 | PCM.HP ---
H&P History of Present Illness - General Date of Service: 12/09/20 Admit Problem/Dx: Admission Diagnosis/Problem Admission Diagnosis/Problem Epistaxis Source of Information: Patient, Provider - History of Present Illness Initial Comments - Free Text/Narative: 50-year-old with a history of alcohol abuse, hypertension. The patient is homeless. Presented to the emergency room with the nausea, vomiting, mid abdominal discomfort. he denies fever or chills. He said his last bowel movement was yesterday. He says he did not drink alcohol for about 6 days. He was in alcohol treatment about a year ago in [facility]. Has been drinking on and off 6-18 beers a day since. had nose bleed that has stopped by now. - Related Data Allergies/Adverse Reactions: Allergies Allergy/AdvReac Type Severity Reaction Status Date / Time No Known Allergies Allergy Verified 12/09/20 07:47 Home Medications: Home Meds . [No Known Home Meds] 12/09/20 [History] Past Medical History - Past Health History Medical/Surgical History: Denies Medical/Surgical History HEENT History: Reports: Impaired Vision Cardiovascular History: Reports: Hypertension Respiratory History: Reports: None Gastrointestinal History: Reports: GERD Genitourinary History: Reports: None Musculoskeletal History: Reports: Fracture Neurological History: Reports: None Psychiatric History: Reports: Addiction, Anxiety, Depression, Panic Attack Endocrine/Metabolic History: Reports: None Hematologic History: Reports: None Immunologic History: Reports: None Oncologic (Cancer) History: Reports: None Dermatologic History: Reports: Eczema - Infectious Disease History Infectious Disease History: Reports: None - Past Surgical History Head Surgeries/Procedures: Reports: None Social & Family History - Family History Family Medical History: No Pertinent Family History - Tobacco Use Tobacco Use Status *Q: Never Tobacco User Second Hand Smoke Exposure: No - Caffeine Use Caffeine Use: Reports: Coffee, Tea Caffeine Use Comment: Drinks a soda very seldom - Alcohol Use Days Per Week of Alcohol Use: 7 Number of Drinks Per Day: 8 Total Drinks Per Week: 56 Date of Last Drink: 12/04/20 - Recreational Drug Use Recreational Drug Use: No - Living Situation & Occupation Living situation: Reports: Single, Alone Occupation: Disabled H&P Review of Systems - Review of Systems: Review Of Systems: See Below General: Reports: Malaise, Weakness. Denies: Fever, Chills Pulmonary: Denies: Shortness of Breath, Wheezing Gastrointestinal: Reports: Abdominal Pain. Denies: Black Stool, Bloody Stool Genitourinary: Denies: Dysuria Psychiatric: Denies: Confusion Neurological: Denies: Dizziness Exam - Exam Exam: See Below - Vital Signs Vital Signs: Last Vital Signs Temp 99 F 12/09/20 07:45 Pulse 101 H 12/09/20 09:00 Resp 16 12/09/20 09:00 BP 179/92 H 12/09/20 09:00 Pulse Ox 96 12/09/20 09:00 Weight: 197 lb 6.4 oz - Exam General: Alert, Oriented Neck: Supple Lungs: Clear to Auscultation, Normal Respiratory Effort Cardiovascular: Regular Rate, Regular Rhythm GI/Abdominal Exam: Normal Bowel Sounds, Soft, Non-Tender, Other (obese) Extremities: No Pedal Edema - Patient Data Lab Results Last 24 hrs: Laboratory Results - last 24 hr 12/09/20 12/09/20 12/09/20 Range/Units 07:41 08:03 08:03 WBC 4.1 L (5.0-10.0) 10^3/uL RBC 4.12 L (4.6-6.2) 10^6/uL Hgb 11.2 L D (14.0-18.0) g/dL Hct 33.4 L (40.0-54.0) % MCV 81.1 D (80-100) fL MCH 27.2 (27.0-34.0) pg MCHC 33.5 (33.0-35.0) g/dL Plt Count 34 L* (150-450) 10^3/uL Neut % (Auto) 55.2 (42.2-75.2) % Lymph % (Auto) 24.5 (20.5-50.1) % Graves % (Auto) 18.4 H (2-8) % Eos % (Auto) 1.2 (1.0-3.0) % Baso % (Auto) 0.7 (0.0-1.0) % PT (9.0-12.0) SEC INR (0.9-1.2) Sodium 136 (136-145) mmol/L Potassium 3.3 L (3.5-5.1) mmol/L Chloride 99 (98-107) mmol/L Carbon Dioxide 24 (21-32) mmol/L Anion Gap 16.3 H (7-13) mEq/L BUN 7 (7-18) mg/dL Creatinine 0.80 (0.70-1.30) mg/dL Est Cr Clr Drug Dosing 105.69 mL/min Estimated GFR (MDRD) > 60 BUN/Creatinine Ratio 8.8 (No establ ref range) Glucose 116 H (74-99) mg/dL Lactic Acid (0.4-2.0) mmol/L Calcium 8.4 L (8.5-10.1) mg/dL Magnesium 1.5 L (1.8-2.4) mg/dL Total Bilirubin 2.4 H (0.2-1.0) mg/dL AST 83 H (15-37) U/L ALT 55 (16-63) U/L Alkaline Phosphatase 117 H (46-116) U/L C-Reactive Protein 0.8 (0.0-0.9) mg/dL Total Protein 7.8 (6.4-8.2) g/dL Albumin 3.2 L (3.4-5.0) g/dL Globulin 4.6 Albumin/Globulin Ratio 0.70 Amylase 63 (25-115) U/L Lipase 103 (73-393) U/L Urine Color (YELLOW) Urine Appearance (CLEAR) Urine pH (5.0-9.0) Ur Specific [place] (1.005-1.030) Urine Protein (NEGATIVE) Urine Glucose (UA) (NEGATIVE) Urine Ketones (NEGATIVE) Urine Occult Blood (NEGATIVE) Urine Nitrite (NEGATIVE) Urine Bilirubin (NEGATIVE) Urine Urobilinogen (0.2-1.0) mg/dL Ur Leukocyte Esterase (NEGATIVE) Urine RBC /HPF Urine WBC (0-5/HPF) /HPF Ur Epithelial Cells (NOT SEEN) /HPF Ethyl Alcohol (0) mg/dL Influenza Type A RNA Negative (NEGATIVE) Influenza Type B RNA Negative (NEGATIVE) SARS-CoV-2 RNA (IRINEO) Negative (NEGATIVE) 12/09/20 12/09/20 12/09/20 Range/Units 08:03 08:03 08:03 WBC (5.0-10.0) 10^3/uL RBC (4.6-6.2) 10^6/uL Hgb (14.0-18.0) g/dL Hct (40.0-54.0) % MCV (80-100) fL MCH (27.0-34.0) pg MCHC (33.0-35.0) g/dL Plt Count (150-450) 10^3/uL Neut % (Auto) (42.2-75.2) % Lymph % (Auto) (20.5-50.1) % Graves % (Auto) (2-8) % Eos % (Auto) (1.0-3.0) % Baso % (Auto) (0.0-1.0) % PT 13.5 H (9.0-12.0) SEC INR 1.4 H (0.9-1.2) Sodium (136-145) mmol/L Potassium (3.5-5.1) mmol/L Chloride (98-107) mmol/L Carbon Dioxide (21-32) mmol/L Anion Gap (7-13) mEq/L BUN (7-18) mg/dL Creatinine (0.70-1.30) mg/dL Est Cr Clr Drug Dosing mL/min Estimated GFR (MDRD) BUN/Creatinine Ratio (No establ ref range) Glucose (74-99) mg/dL Lactic Acid 2.4 H* (0.4-2.0) mmol/L Calcium (8.5-10.1) mg/dL Magnesium (1.8-2.4) mg/dL Total Bilirubin (0.2-1.0) mg/dL AST (15-37) U/L ALT (16-63) U/L Alkaline Phosphatase (46-116) U/L C-Reactive Protein (0.0-0.9) mg/dL Total Protein (6.4-8.2) g/dL Albumin (3.4-5.0) g/dL Globulin Albumin/Globulin Ratio Amylase (25-115) U/L Lipase (73-393) U/L Urine Color (YELLOW) Urine Appearance (CLEAR) Urine pH (5.0-9.0) Ur Specific [place] (1.005-1.030) Urine Protein (NEGATIVE) Urine Glucose (UA) (NEGATIVE) Urine Ketones (NEGATIVE) Urine Occult Blood (NEGATIVE) Urine Nitrite (NEGATIVE) Urine Bilirubin (NEGATIVE) Urine Urobilinogen (0.2-1.0) mg/dL Ur Leukocyte Esterase (NEGATIVE) Urine RBC /HPF Urine WBC (0-5/HPF) /HPF Ur Epithelial Cells (NOT SEEN) /HPF Ethyl Alcohol < 3 (0) mg/dL Influenza Type A RNA (NEGATIVE) Influenza Type B RNA (NEGATIVE) SARS-CoV-2 RNA (IRINEO) (NEGATIVE) 12/09/20 12/09/20 Range/Units 11:00 12:40 WBC (5.0-10.0) 10^3/uL RBC (4.6-6.2) 10^6/uL Hgb (14.0-18.0) g/dL Hct (40.0-54.0) % MCV (80-100) fL MCH (27.0-34.0) pg MCHC (33.0-35.0) g/dL Plt Count (150-450) 10^3/uL Neut % (Auto) (42.2-75.2) % Lymph % (Auto) (20.5-50.1) % Graves % (Auto) (2-8) % Eos % (Auto) (1.0-3.0) % Baso % (Auto) (0.0-1.0) % PT (9.0-12.0) SEC INR (0.9-1.2) Sodium (136-145) mmol/L Potassium (3.5-5.1) mmol/L Chloride (98-107) mmol/L Carbon Dioxide (21-32) mmol/L Anion Gap (7-13) mEq/L BUN (7-18) mg/dL Creatinine (0.70-1.30) mg/dL Est Cr Clr Drug Dosing mL/min Estimated GFR (MDRD) BUN/Creatinine Ratio (No establ ref range) Glucose (74-99) mg/dL Lactic Acid 1.5 (0.4-2.0) mmol/L Calcium (8.5-10.1) mg/dL Magnesium (1.8-2.4) mg/dL Total Bilirubin (0.2-1.0) mg/dL AST (15-37) U/L ALT (16-63) U/L Alkaline Phosphatase (46-116) U/L C-Reactive Protein (0.0-0.9) mg/dL Total Protein (6.4-8.2) g/dL Albumin (3.4-5.0) g/dL Globulin Albumin/Globulin Ratio Amylase (25-115) U/L Lipase (73-393) U/L Urine Color Yellow (YELLOW) Urine Appearance Clear (CLEAR) Urine pH 7.5 (5.0-9.0) Ur Specific [place] 1.015 (1.005-1.030) Urine Protein Negative (NEGATIVE) Urine Glucose (UA) Negative (NEGATIVE) Urine Ketones 15 H (NEGATIVE) Urine Occult Blood Trace-intact H (NEGATIVE) Urine Nitrite Negative (NEGATIVE) Urine Bilirubin Negative (NEGATIVE) Urine Urobilinogen 1.0 (0.2-1.0) mg/dL Ur Leukocyte Esterase Negative (NEGATIVE) Urine RBC 0-5 /HPF Urine WBC 0-5 (0-5/HPF) /HPF Ur Epithelial Cells Not seen (NOT SEEN) /HPF Ethyl Alcohol (0) mg/dL Influenza Type A RNA (NEGATIVE) Influenza Type B RNA (NEGATIVE) SARS-CoV-2 RNA (IRINEO) (NEGATIVE) Result Diagrams: 12/09/20 08:03 12/09/20 08:03 - Problem List (1) Alcohol addiction SNOMED Code(s): 35802602 ICD Code: F10.20 - ALCOHOL DEPENDENCE, UNCOMPLICATED Status: Acute Current Visit: Yes (2) Hypertension SNOMED Code(s): 43538452 ICD Code: I10 - ESSENTIAL (PRIMARY) HYPERTENSION Status: Acute Current Visit: Yes (3) Chronic liver disease and cirrhosis SNOMED Code(s): 623849642 ICD Code: K74.60 - UNSPECIFIED CIRRHOSIS OF LIVER; K76.9 - LIVER DISEASE, UNSPECIFIED Status: Acute Current Visit: No (4) Constipation SNOMED Code(s): 53201781 ICD Code: K59.00 - CONSTIPATION, UNSPECIFIED Status: Acute Current Visit: No Qualifiers: Constipation type: unspecified constipation type Qualified Code(s): K59.00 - Constipation, unspecified (5) Intra-abdominal varices SNOMED Code(s): 851955474 ICD Code: I86.8 - VARICOSE VEINS OF OTHER SPECIFIED SITES Status: Acute Current Visit: No (6) Left renal mass SNOMED Code(s): 680698182 ICD Code: N28.89 - OTHER SPECIFIED DISORDERS OF KIDNEY AND URETER Status: Acute Current Visit: No (7) Portal hypertension SNOMED Code(s): 97845622 ICD Code: K76.6 - PORTAL HYPERTENSION Status: Acute Current Visit: No Problem List Initiated/Reviewed/Updated: Yes Orders Last 24hrs: Active Orders 24 hr Category Date Time Status Admission Diagnosis [ADT] Routine ADT 12/09/20 11:12 Ordered Admission Status [Patient Status] [ADT] Routine ADT 12/09/20 11:12 Active Antiembolic Devices [RC] PER UNIT ROUTINE Care 12/09/20 13:32 Ordered Oxygen Therapy [RC] PRN Care 12/09/20 13:27 Ordered Peripheral IV Care [RC] . DIRECTED Care 12/09/20 13:32 Ordered Up With Assistance [RC] ASDIRECTED Care 12/09/20 13:27 Ordered VTE/DVT Education [RC] PER UNIT ROUTINE Care 12/09/20 13:27 Ordered Vital Signs [RC] Q4H Care 12/09/20 13:27 Ordered 2 Gram Sodium Diet [DIET] Diet 12/09/20 Dinner Ordered BASIC METABOLIC PANEL,BMP [CHEM] AM Lab 12/10/20 05:11 Ordered CBC W/O DIFF,HEMOGRAM [HEME] AM Lab 12/10/20 05:11 Ordered HEPATIC FUNCTION PANEL,HFP [CHEM] AM Lab 12/10/20 05:11 Ordered MAGNESIUM [CHEM] AM Lab 12/10/20 05:11 Ordered PHOSPHORUS [CHEM] AM Lab 12/10/20 05:11 Ordered Acetaminophen [TylenoL] Med 12/09/20 13:27 Ordered 650 mg PO Q4H PRN Docusate Sodium [Colace] Med 12/09/20 13:27 Ordered 100 mg PO BID PRN Folic Acid Med 12/09/20 13:45 Ordered 1 mg PO DAILY LORazepam [Ativan] Med 12/09/20 13:26 Ordered See Protocol IVPUSH TITRATE PRN LORazepam [Ativan] Med 12/09/20 13:26 Ordered See Protocol PO TITRATE PRN Lactulose [Cephulac] Med 12/09/20 13:35 Once 20 gm PO ONETIME ONE Magnesium Oxide Med 12/09/20 18:00 Ordered 500 mg PO BIDM Multivitamins/Minerals [Vitamins and Minerals] Med 12/09/20 13:45 Ordered 1 tab PO DAILY Ondansetron [Zofran ODT] Med 12/09/20 13:27 Ordered 4 mg PO Q6H PRN Ondansetron [Zofran] Med 12/09/20 13:27 Ordered 4 mg IVPUSH Q4H PRN Potassium Chloride [Klor-Con 10] Med 12/09/20 13:45 Ordered 40 meq PO Q6H Propranolol [Inderal] Med 12/09/20 14:00 Ordered 20 mg PO TID Sodium Chloride 0.9% [Saline Flush] Med 12/09/20 13:27 Ordered 10 ml FLUSH ASDIRECTED PRN Temazepam [Restoril] Med 12/09/20 13:27 Ordered 15 mg PO BEDTIME PRN Thiamine [Vitamin B-1] Med 12/09/20 13:45 Ordered 100 mg PO DAILY Antiembolic Hose [OM.PC] Per Unit Routine Oth 12/09/20 13:30 Ordered Isolation [COMM] Routine Oth 12/09/20 07:41 Active Peripheral IV Insertion Adult [OM.PC] Routine Oth 12/09/20 13:27 Ordered Saline Lock Insert [OM.PC] Routine Oth 12/09/20 13:27 Ordered Resuscitation Status Routine Resus Stat 12/09/20 13:27 Ordered Medication Orders Acetaminophen (Tylenol) 650 mg PO Q4H PRN PRN Reason: Pain (Mild 1-3)/fever Docusate Sodium (Colace) 100 mg PO BID PRN PRN Reason: Constipation Folic Acid (Folic Acid) 1 mg PO DAILY [facility] Lactulose (Cephulac) 20 gm PO ONETIME ONE Stop: 12/09/20 13:36 Lorazepam (Ativan) 0 mg PO TITRATE PRN; Protocol PRN Reason: [facility] protocol Lorazepam (Ativan) 0 mg IVPUSH TITRATE PRN; Protocol PRN Reason: [facility] protocol Magnesium Oxide (Magnesium Oxide) 500 mg PO BIDM [facility] Stop: 12/10/20 08:01 Multivitamins/Minerals (Vitamins And Minerals) 1 tab PO DAILY [facility] Ondansetron HCl (Zofran Odt) 4 mg PO Q6H PRN PRN Reason: nausea, able to take PO Ondansetron HCl (Zofran) 4 mg IVPUSH Q4H PRN PRN Reason: Nausea/Vomiting Potassium Chloride (Klor-Con 10) 40 meq PO Q6H [facility] Stop: 12/09/20 19:46 Propranolol HCl (Inderal) 20 mg PO TID [facility] Sodium Chloride (Saline Flush) 10 ml FLUSH ASDIRECTED PRN PRN Reason: Keep Vein Open Temazepam (Restoril) 15 mg PO BEDTIME PRN PRN Reason: Sleep Thiamine HCl (Vitamin B-1) 100 mg PO DAILY [facility] Assessment/Plan Comment:: The patient is a 50-year-old gentleman with a history of alcohol abuse. Presented with the generalized not feeling well, nosebleed, abdominal discomfort, vomiting. CT abd IMPRESSION: 1. Cirrhotic liver disease, recannulization of the umbilical vein and abdominal varices compatible with portal hypertension. No ascites. 2. Left 5.7 cm solid complex renal mass. Differential includes renal carcinoma or neoplasm. Recommend further characterization with renal MRI w/wo contrast. 3. Left adrenal gland hyperplasia or neoplasm. Correlate with MRI. 4. Rectosigmoid stool with proximal colonic dilated bowel loops. Correlate for constipation. 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 With portal hypertension No Ascites Hypertension Start Inderal with a history of liver cirrhosis, portal hypertension Hypokalemia, hypomagnesemia We will replace and recheck Lactic acidosis Likely secondary to liver disease I doubt sepsis Urine analysis appeared negative for infection Resolved with recheck Renal mass, 5.7 cm Possible adrenal mass Will need further outpatient follow-up Thrombocytopenia, anemia Likely secondary to portal hypertension Monitor blood counts Nosebleed Likely secondary to thrombocytopenia Control blood pressure Well follow Constipation Give lactulose History of alcohol abuse Will give thiamine, folate, multivitamin Follow for potential withdrawal symptoms Use Ativan per [facility] protocol He is interested in inpatient alcohol treatment The patient is homeless Well consult social work DVT prophylaxis with mary stocking Hold anticoagulants with the significant from thrombocytopenia
[2020-12-09] MEDS: Acetaminophen 325 MG Tab PO PRN ×2 (13:59→20:35)
[2020-12-09] MEDS: Potassium Chloride 10 MEQ Tab.ER PO SCH ×2 (14:00→20:34)
[2020-12-09] MEDS: Folic Acid 1 MG Tab PO SCH (14:00)
[2020-12-09] MEDS: Thiamine 100 MG Tab PO SCH (14:00)
[2020-12-09] MEDS: Multivitamins, Therapeutic with Minerals Tab PO SCH (14:00)
[2020-12-09] MEDS: Propranolol 20 MG Tab PO SCH ×2 (14:01→20:34)
[2020-12-09] MEDS: Sodium Chloride 0.9% 10 ML Syringe FLUSH PRN ×2 (20:36→20:44)
[2020-12-10 07:10] LABS: ANION GAP 11.5 mEq/L (7-13); CHLORIDE,CL 101 mmol/L (98-107); SODIUM,NA 134 mmol/L (136-145)
[2020-12-10] MEDS: Propranolol 20 MG Tab PO SCH ×3 (08:47→20:37)
[2020-12-10] MEDS: Thiamine 100 MG Tab PO SCH (08:47)
[2020-12-10] MEDS: Multivitamins, Therapeutic with Minerals Tab PO SCH (08:47)
[2020-12-10] MEDS: Folic Acid 1 MG Tab PO SCH (08:48)
--- NOTE | 2020-12-10 11:38 | PCM.PN ---
- General Info Date of Service: 12/10/20 Admission Dx/Problem (Free Text): Admission Diagnosis/Problem Admission Diagnosis/Problem Epistaxis Subjective Update: had an other epistaxis episode overnight.Still feeling nauseous, No associated abdominal pain. No fever. Eating small amounts at that time. no chest pain, no shortness of breath No significant withdrawal symptoms Functional Status: Reports: Pain Controlled. Denies: Tolerating Diet, Ambulating - Review of Systems General: Reports: Weakness, Fatigue. Denies: Fever Pulmonary: Denies: Shortness of Breath Cardiovascular: Denies: Chest Pain, Edema Neurological: Denies: Confusion - Patient Data Vitals - Most Recent: Last Vital Signs Temp 98.7 F 12/10/20 08:00 Pulse 70 12/10/20 08:00 Resp 18 12/10/20 08:00 BP 129/68 12/10/20 08:00 Pulse Ox 97 12/10/20 08:00 Weight - Most Recent: 197 lb 6.4 oz I&O - Last 24 Hours: Intake & Output 12/09/20 12/10/20 12/10/20 22:59 06:59 14:59 Intake Total 300 200 200 Balance 300 200 200 Lab Results Last 24 Hours: Laboratory Results - last 24 hr 12/09/20 12/10/20 12/10/20 Range/Units 12:40 06:25 06:25 WBC 5.1 (5.0-10.0) 10^3/uL RBC 4.17 L (4.6-6.2) 10^6/uL Hgb 11.0 L (14.0-18.0) g/dL Hct 34.4 L (40.0-54.0) % MCV 82.5 (80-100) fL MCH 26.4 L (27.0-34.0) pg MCHC 32.0 L (33.0-35.0) g/dL Plt Count 51 L (150-450) 10^3/uL Sodium 134 L (136-145) mmol/L Potassium 4.5 (3.5-5.1) mmol/L Chloride 101 (98-107) mmol/L Carbon Dioxide 26 (21-32) mmol/L Anion Gap 11.5 (7-13) mEq/L BUN 6 L (7-18) mg/dL Creatinine 0.76 (0.70-1.30) mg/dL Est Cr Clr Drug Dosing 111.25 mL/min Estimated GFR (MDRD) > 60 Glucose 110 H (74-99) mg/dL Lactic Acid 1.5 (0.4-2.0) mmol/L Calcium 8.2 L (8.5-10.1) mg/dL Phosphorus 2.4 L (2.6-4.7) mg/dL Magnesium 1.7 L (1.8-2.4) mg/dL Total Bilirubin 2.0 H (0.2-1.0) mg/dL Direct Bilirubin 0.9 H (0.0-0.2) mg/dL Indirect Bilirubin 1.1 AST 58 H (15-37) U/L ALT 48 (16-63) U/L Alkaline Phosphatase 114 (46-116) U/L Total Protein 7.2 (6.4-8.2) g/dL Albumin 2.9 L (3.4-5.0) g/dL Globulin 4.3 Albumin/Globulin Ratio 0.67 Med Orders - Current: Current Medications Acetaminophen (Tylenol) 650 mg PO Q4H PRN PRN Reason: Pain (Mild 1-3)/fever Last Admin: 12/09/20 20:35 Dose: 650 mg Documented by: Docusate Sodium (Colace) 100 mg PO BID PRN PRN Reason: Constipation Folic Acid (Folic Acid) 1 mg PO DAILY [facility] Last Admin: 12/10/20 08:48 Dose: 1 mg Documented by: Lorazepam (Ativan) 0 mg PO TITRATE PRN; Protocol PRN Reason: [facility] protocol Lorazepam (Ativan) 0 mg IVPUSH TITRATE PRN; Protocol PRN Reason: [facility] protocol Last Admin: 12/09/20 20:37 Dose: 2 mg Documented by: Magnesium Oxide (Magnesium Oxide) 500 mg PO BIDM [facility] Stop: 12/10/20 18:01 Multivitamins/Minerals (Vitamins And Minerals) 1 tab PO DAILY [facility] Last Admin: 12/10/20 08:47 Dose: 1 tab Documented by: Ondansetron HCl (Zofran Odt) 4 mg PO Q6H PRN PRN Reason: nausea, able to take PO Ondansetron HCl (Zofran) 4 mg IVPUSH Q4H PRN PRN Reason: Nausea/Vomiting Propranolol HCl (Inderal) 20 mg PO TID [facility] Last Admin: 12/10/20 08:47 Dose: 20 mg Documented by: Sodium Chloride (Saline Flush) 10 ml FLUSH ASDIRECTED PRN PRN Reason: Keep Vein Open Last Admin: 12/09/20 20:44 Dose: 10 ml Documented by: Sodium Phosphate (Neutra-Phos) 250 mg PO QID [facility] Stop: 12/10/20 17:01 Temazepam (Restoril) 15 mg PO BEDTIME PRN PRN Reason: Sleep Thiamine HCl (Vitamin B-1) 100 mg PO DAILY [facility] Last Admin: 12/10/20 08:47 Dose: 100 mg Documented by: Discontinued Medications Sodium Chloride (Normal Saline) 1,000 mls @ 250 mls/hr IV CONTINUOUS ONE Stop: 12/09/20 12:09 Last Admin: 12/09/20 08:20 Dose: 250 mls/hr Documented by: Magnesium Sulfate/Dextrose (Magnesium Sulfate In D5w 100 Premix) 1 gm in 100 ml s @ 100 mls/hr IV ONETIME ONE Stop: 12/09/20 11:51 Last Admin: 12/09/20 11:00 Dose: 100 mls/hr Documented by: Iopamidol (Isovue-300 (61%)) 100 ml IVPUSH ONETIME ONE Stop: 12/09/20 09:19 Last Admin: 12/09/20 09:40 Dose: 100 ml Documented by: Lactulose (Cephulac) 20 gm PO ONETIME ONE Stop: 12/09/20 13:36 Last Admin: 12/09/20 14:01 Dose: 20 gm Documented by: Magnesium Oxide (Magnesium Oxide) 500 mg PO BID@0800,1800 [facility] Stop: 12/10/20 08:01 Last Admin: 12/10/20 08:47 Dose: 500 mg Documented by: Ondansetron HCl (Zofran) 4 mg IV ONETIME ONE Stop: 12/09/20 07:40 Last Admin: 12/09/20 07:58 Dose: 4 mg Documented by: Potassium Chloride (Klor-Con 10) 40 meq PO ONETIME ONE Stop: 12/09/20 13:34 Last Admin: 12/09/20 15:21 Dose: Not Given Documented by: Potassium Chloride (Klor-Con 10) 40 meq PO Q6H [facility] Stop: 12/09/20 20:01 Last Admin: 12/09/20 20:34 Dose: 40 meq Documented by: - Exam General: Alert, Oriented Neck: Supple Lungs: Clear to Auscultation, Normal Respiratory Effort Cardiovascular: Regular Rate, Regular Rhythm GI/Abdominal Exam: Normal Bowel Sounds, Soft, Non-Tender Extremities: No Pedal Edema Sepsis Event Note - Evaluation Sepsis Screening Result: No Definite Risk - Focused Exam Vital Signs: Vital Signs Temp Pulse Resp BP Pulse Ox 12/10/20 08:00 98.7 F 70 18 129/68 97 12/10/20 04:48 99.2 F 76 20 125/72 98 - Problem List & Annotations (1) Alcohol addiction SNOMED Code(s): 97145687 Code(s): F10.20 - ALCOHOL DEPENDENCE, UNCOMPLICATED Status: Acute Current Visit: Yes (2) Hypertension SNOMED Code(s): 26354331 Code(s): I10 - ESSENTIAL (PRIMARY) HYPERTENSION Status: Acute Current Visit: Yes (3) Chronic liver disease and cirrhosis SNOMED Code(s): 796091727 Code(s): K74.60 - UNSPECIFIED CIRRHOSIS OF LIVER; K76.9 - LIVER DISEASE, UNSPECIFIED Status: Acute Current Visit: No (4) Constipation SNOMED Code(s): 95873007 Code(s): K59.00 - CONSTIPATION, UNSPECIFIED Status: Acute Current Visit: No Qualifiers: Constipation type: unspecified constipation type Qualified Code(s): K59.00 - Constipation, unspecified (5) Intra-abdominal varices SNOMED Code(s): 852845759 Code(s): I86.8 - VARICOSE VEINS OF OTHER SPECIFIED SITES Status: Acute Current Visit: No (6) Left renal mass SNOMED Code(s): 470500713 Code(s): N28.89 - OTHER SPECIFIED DISORDERS OF KIDNEY AND URETER Status: Acute Current Visit: No (7) Portal hypertension SNOMED Code(s): 10924418 Code(s): K76.6 - PORTAL HYPERTENSION Status: Acute Current Visit: No - Problem List Review Problem List Initiated/Reviewed/Updated: Yes - My Orders Last 24 Hours: My Active Orders 12/09/20 13:26 LORazepam [Ativan] See Protocol IVPUSH TITRATE PRN LORazepam [Ativan] See Protocol PO TITRATE PRN 12/09/20 13:27 Oxygen Therapy [RC] PRN Up With Assistance [RC] ASDIRECTED VTE/DVT Education [RC] PER UNIT ROUTINE Vital Signs [RC] Q4H Acetaminophen [TylenoL] 650 mg PO Q4H PRN Docusate Sodium [Colace] 100 mg PO BID PRN Ondansetron [Zofran ODT] 4 mg PO Q6H PRN Ondansetron [Zofran] 4 mg IVPUSH Q4H PRN Sodium Chloride 0.9% [Saline Flush] 10 ml FLUSH ASDIRECTED PRN Temazepam [Restoril] 15 mg PO BEDTIME PRN Peripheral IV Insertion Adult [OM.PC] Routine Saline Lock Insert [OM.PC] Routine Resuscitation Status Routine 12/09/20 13:30 Antiembolic Hose [OM.PC] Per Unit Routine 12/09/20 13:32 Antiembolic Devices [RC] PER UNIT ROUTINE Peripheral IV Care [RC] 08,20 12/09/20 13:45 Folic Acid 1 mg PO DAILY Multivitamins/Minerals [Vitamins and Minerals] 1 tab PO DAILY Thiamine [Vitamin B-1] 100 mg PO DAILY 12/09/20 14:00 Propranolol [Inderal] 20 mg PO TID 12/09/20 Dinner 2 Gram Sodium Diet [DIET] 12/10/20 11:40 Magnesium Oxide 500 mg PO BIDM 12/10/20 13:00 Phosphorus #1 [Neutra-Phos] 250 mg PO QID 12/11/20 05:11 MAGNESIUM [CHEM] AM PHOSPHORUS [CHEM] AM 12/11/20 05:15 BASIC METABOLIC PANEL,BMP [CHEM] AM CBC WITH AUTO DIFF [HEME] AM - Plan Plan:: The patient is a 50-year-old gentleman with a history of alcohol abuse. Presented with the generalized not feeling well, nosebleed, abdominal discomfort, vomiting. CT abd IMPRESSION: 1. Cirrhotic liver disease, recannulization of the umbilical vein and abdominal varices compatible with portal hypertension. No ascites. 2. Left 5.7 cm solid complex renal mass. Differential includes renal carcinoma or neoplasm. Recommend further characterization with renal MRI w/wo contrast. 3. Left adrenal gland hyperplasia or neoplasm. Correlate with MRI. 4. Rectosigmoid stool with proximal colonic dilated bowel loops. Correlate for constipation. 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 With portal hypertension No Ascites Hypertension treat with Inderal with a history of liver cirrhosis, portal hypertension Hypokalemia, hypomagnesemia We will continue to replace and recheck Lactic acidosis Likely secondary to liver disease I doubt sepsis Urine analysis appeared negative for infection Resolved Renal mass, 5.7 cm Possible adrenal mass Will need further outpatient follow-up Thrombocytopenia, anemia Likely secondary to portal hypertension plt is improved Monitor blood counts Nosebleed Likely secondary to thrombocytopenia Control blood pressure Well follow Constipation Given lactulose History of alcohol abuse Will give thiamine, folate, multivitamin Follow for potential withdrawal symptoms Use Ativan per [facility] protocol He is interested in inpatient alcohol treatment The patient is homeless Well consult social work DVT prophylaxis with mary stocking Hold anticoagulants with the significant from thrombocytopenia
[2020-12-10] MEDS: Phosphorus #1 250 MG Tab PO SCH ×2 (12:21→17:26)
[2020-12-11 06:55] LABS: ANION GAP 14.1 mEq/L (7-13); CHLORIDE,CL 101 mmol/L (98-107); SODIUM,NA 134 mmol/L (136-145)
--- NOTE | 2020-12-11 09:29 | PCM.DCSUM1 ---
Discharge Summary - Hospital Course Free Text/Narrative:: The patient is a 50-year-old gentleman with a history of alcohol abuse. Presented with the generalized not feeling well, nosebleed, abdominal discomfort, vomiting. CT abd IMPRESSION: 1. Cirrhotic liver disease, recannulization of the umbilical vein and abdominal varices compatible with portal hypertension. No ascites. 2. Left 5.7 cm solid complex renal mass. Differential includes renal carcinoma or neoplasm. Recommend further characterization with renal MRI w/wo contrast. 3. Left adrenal gland hyperplasia or neoplasm. Correlate with MRI. 4. Rectosigmoid stool with proximal colonic dilated bowel loops. Correlate for constipation. Generalized malaise Abdominal discomfort, nausea, vomiting Weakness This is likely secondary to liver cirrhosis, likely malignancy improved Liver cirrhosis, likely alcoholic With portal hypertension No Ascites Hypertension treat with Inderal with a history of liver cirrhosis, portal hypertension Hypokalemia, hypomagnesemia We will continue to replace and recheck Lactic acidosis Likely secondary to liver disease I doubt sepsis Urine analysis appeared negative for infection Resolved Renal mass, 5.7 cm Possible adrenal mass Will need further outpatient follow-up - [facility] Thrombocytopenia, anemia Likely secondary to portal hypertension plt is improved Monitor blood counts Nosebleed Likely secondary to thrombocytopenia Control blood pressure Constipation Given lactulose History of alcohol abuse continue multivitamin f/[facility] - Discharge Data Discharge Date: 12/11/20 Discharge Disposition: Home, Self-Care 01 Condition: Good - Referral to Home Health Primary Care Physician: WENCESLAO Christiansen - Discharge Diagnosis/Problem(s) (1) Alcohol addiction SNOMED Code(s): 90589419 ICD Code: F10.20 - ALCOHOL DEPENDENCE, UNCOMPLICATED Status: Acute Current Visit: Yes (2) Hypertension SNOMED Code(s): 50063523 ICD Code: I10 - ESSENTIAL (PRIMARY) HYPERTENSION Status: Acute Current Visit: Yes (3) Chronic liver disease and cirrhosis SNOMED Code(s): 659357577 ICD Code: K74.60 - UNSPECIFIED CIRRHOSIS OF LIVER; K76.9 - LIVER DISEASE, UNSPECIFIED Status: Acute Current Visit: No (4) Constipation SNOMED Code(s): 50532456 ICD Code: K59.00 - CONSTIPATION, UNSPECIFIED Status: Acute Current Visit: No Qualifiers: Constipation type: unspecified constipation type Qualified Code(s): K59.00 - Constipation, unspecified (5) Intra-abdominal varices SNOMED Code(s): 575332498 ICD Code: I86.8 - VARICOSE VEINS OF OTHER SPECIFIED SITES Status: Acute Current Visit: No (6) Left renal mass SNOMED Code(s): 295666910 ICD Code: N28.89 - OTHER SPECIFIED DISORDERS OF KIDNEY AND URETER Status: Acute Current Visit: No (7) Portal hypertension SNOMED Code(s): 48373407 ICD Code: K76.6 - PORTAL HYPERTENSION Status: Acute Current Visit: No - Patient Instructions Diet: Heart Healthy Diet Activity: As Tolerated - Discharge Plan *PRESCRIPTION DRUG MONITORING PROGRAM REVIEWED*: No *COPY OF PRESCRIPTION DRUG MONITORING REPORT IN PATIENT MARKOS: No Prescriptions/Med Rec: Propranolol [Inderal LA 24 Hr] 60 mg PO DAILY #30 cap.er Multivitamins/Minerals [Vitamins and Minerals] 1 tab PO DAILY #30 tablet Home Medications: Home Meds Multivitamins/Minerals [Vitamins and Minerals] 1 tab PO DAILY #30 tablet 12/11/20 [Rx] Propranolol [Inderal LA 24 Hr] 60 mg PO DAILY #30 cap.er 12/11/20 [Rx] Oxygen Therapy Mode: Room Air Forms: ED Department Discharge Referrals: PCP,None [Ordering Only Provider] - ([facility]) - Discharge Summary/Plan Comment DC Time >30 min.: No - General Info Date of Service: 12/11/20 - Review of Systems General: Reports: Weakness, Malaise. Denies: Fever Pulmonary: Denies: Shortness of Breath Cardiovascular: Denies: Chest Pain, Edema Gastrointestinal: Reports: Other (tolerating diet). Denies: Diarrhea, Nausea, Vomiting Neurological: Denies: Confusion - Patient Data Vitals - Most Recent: Last Vital Signs Temp 98.4 F 12/11/20 08:00 Pulse 73 12/11/20 08:00 Resp 18 12/11/20 08:00 BP 119/68 12/11/20 08:00 Pulse Ox 98 12/11/20 08:00 Weight - Most Recent: 197 lb 6.4 oz Lab Results - Last 24 hrs: Laboratory Results - last 24 hr 12/11/20 12/11/20 Range/Units 06:20 06:20 WBC 8.0 (5.0-10.0) 10^3/uL RBC 4.53 L (4.6-6.2) 10^6/uL Hgb 12.2 L (14.0-18.0) g/dL Hct 36.9 L (40.0-54.0) % MCV 81.5 (80-100) fL MCH 26.9 L (27.0-34.0) pg MCHC 33.1 (33.0-35.0) g/dL Plt Count 58 L (150-450) 10^3/uL Neut % (Auto) 46.3 (42.2-75.2) % Lymph % (Auto) 34.1 (20.5-50.1) % [place] % (Auto) 14.8 H (2-8) % Eos % (Auto) 4.3 H (1.0-3.0) % Baso % (Auto) 0.5 (0.0-1.0) % Sodium 134 L (136-145) mmol/L Potassium 4.1 (3.5-5.1) mmol/L Chloride 101 (98-107) mmol/L Carbon Dioxide 23 (21-32) mmol/L Anion Gap 14.1 H (7-13) mEq/L BUN 8 (7-18) mg/dL Creatinine 0.76 (0.70-1.30) mg/dL Est Cr Clr Drug Dosing 111.25 mL/min Estimated GFR (MDRD) > 60 Glucose 118 H (74-99) mg/dL Calcium 8.7 (8.5-10.1) mg/dL Phosphorus 2.9 (2.6-4.7) mg/dL Magnesium 1.9 (1.8-2.4) mg/dL Med Orders - Current: Current Medications Acetaminophen (Tylenol) 650 mg PO Q4H PRN PRN Reason: Pain (Mild 1-3)/fever Last Admin: 12/09/20 20:35 Dose: 650 mg Documented by: Docusate Sodium (Colace) 100 mg PO BID PRN PRN Reason: Constipation Folic Acid (Folic Acid) 1 mg PO DAILY [facility] Last Admin: 12/10/20 08:48 Dose: 1 mg Documented by: Lorazepam (Ativan) 0 mg PO TITRATE PRN; Protocol PRN Reason: [facility] protocol Lorazepam (Ativan) 0 mg IVPUSH TITRATE PRN; Protocol PRN Reason: [facility] protocol Last Admin: 12/09/20 20:37 Dose: 2 mg Documented by: Multivitamins/Minerals (Vitamins And Minerals) 1 tab PO DAILY [facility] Last Admin: 12/10/20 08:47 Dose: 1 tab Documented by: Ondansetron HCl (Zofran Odt) 4 mg PO Q6H PRN PRN Reason: nausea, able to take PO Ondansetron HCl (Zofran) 4 mg IVPUSH Q4H PRN PRN Reason: Nausea/Vomiting Propranolol HCl (Inderal) 20 mg PO TID [facility] Last Admin: 12/10/20 20:37 Dose: 20 mg Documented by: Sodium Chloride (Saline Flush) 10 ml FLUSH ASDIRECTED PRN PRN Reason: Keep Vein Open Last Admin: 12/09/20 20:44 Dose: 10 ml Documented by: Temazepam (Restoril) 15 mg PO BEDTIME PRN PRN Reason: Sleep Thiamine HCl (Vitamin B-1) 100 mg PO DAILY [facility] Last Admin: 12/10/20 08:47 Dose: 100 mg Documented by: Discontinued Medications Sodium Chloride (Normal Saline) 1,000 mls @ 250 mls/hr IV CONTINUOUS ONE Stop: 12/09/20 12:09 Last Admin: 12/09/20 08:20 Dose: 250 mls/hr Documented by: Magnesium Sulfate/Dextrose (Magnesium Sulfate In D5w 100 Premix) 1 gm in 100 mls @ 100 mls/hr IV ONETIME ONE Stop: 12/09/20 11:51 Last Admin: 12/09/20 11:00 Dose: 100 mls/hr Documented by: Iopamidol (Isovue-300 (61%)) 100 ml IVPUSH ONETIME ONE Stop: 12/09/20 09:19 Last Admin: 12/09/20 09:40 Dose: 100 ml Documented by: Lactulose (Cephulac) 20 gm PO ONETIME ONE Stop: 12/09/20 13:36 Last Admin: 12/09/20 14:01 Dose: 20 gm Documented by: Magnesium Oxide (Magnesium Oxide) 500 mg PO BID@0800,1800 [facility] Stop: 12/10/20 08:01 Last Admin: 12/10/20 08:47 Dose: 500 mg Documented by: Magnesium Oxide (Magnesium Oxide) 500 mg PO BIDMEALS [facility] Stop: 12/10/20 18:01 Last Admin: 12/10/20 17:26 Dose: 500 mg Documented by: Ondansetron HCl (Zofran) 4 mg IV ONETIME ONE Stop: 12/09/20 07:40 Last Admin: 12/09/20 07:58 Dose: 4 mg Documented by: Potassium Chloride (Klor-Con 10) 40 meq PO ONETIME ONE Stop: 12/09/20 13:34 Last Admin: 12/09/20 15:21 Dose: Not Given Documented by: Potassium Chloride (Klor-Con 10) 40 meq PO Q6H [facility] Stop: 12/09/20 20:01 Last Admin: 12/09/20 20:34 Dose: 40 meq Documented by: Sodium Phosphate (Neutra-Phos) 250 mg PO QID [facility] Stop: 12/10/20 17:01 Last Admin: 12/10/20 17:26 Dose: 250 mg Documented by: - Exam General: Reports: Alert, Oriented Neck: Reports: Supple Lungs: Reports: Clear to Auscultation, Normal Respiratory Effort Cardiovascular: Reports: Regular Rate, Regular Rhythm GI/Abdominal Exam: Normal Bowel Sounds, Soft, Non-Tender, Other (obese) Extremities: No Pedal Edema Skin: Reports: Warm, Dry Psy/Mental Status: Reports: Alert, Normal Affect, Normal Mood
[2020-12-11] MEDS: Folic Acid 1 MG Tab PO SCH (09:36)
[2020-12-11] MEDS: Multivitamins, Therapeutic with Minerals Tab PO SCH (09:36)
[2020-12-11] MEDS: Thiamine 100 MG Tab PO SCH (09:36)
[2020-12-11] MEDS: Propranolol 20 MG Tab PO SCH (09:36)
== END 2020-12-11 11:00 | disposition home or self-care (01) ==
LOC: DL.ED 07:44 → DL.MS 11:12
PROVIDERS: ADMIT Internal Medicine; ATTEND Internal Medicine
DX: K74.60 Unspecified cirrhosis of liver (principal); K59.00 Constipation, unspecified; I86.8 Varicose veins of other specified sites; N28.89 Other specified disorders of kidney and ureter; K76.6 Portal hypertension; E87.6 Hypokalemia; E83.42 Hypomagnesemia; I10 Essential (primary) hypertension; K21.9 Gastro-esophageal reflux disease without esophagitis; F10.20 Alcohol dependence, uncomplicated; E87.2 Acidosis; D64.9 Anemia, unspecified; D69.6 Thrombocytopenia, unspecified; R04.0 Epistaxis; Z20.822 Contact with and (suspected) exposure to COVID-19
CPT/HCPCS: 0240U; 36415; 74177; 80048; 80053; 80076; 80307; 81001; 82150; 83605; 83690; 83735; 84100; 85025; 85027; 85610; 86140; 93005; 99217; 99218; 99225; 99284; A9270-GY; J2060; J2405; J3475; J7030; Q9967

== ENCOUNTER 2022-11-20 14:02 | Emergency (ER) | payer OTHER ==
[2022-11-20] MEDS ORDERED: Sodium Chloride 0.9% 10 ML Syringe FLUSH PRN (14:17)
[2022-11-20] MEDS ORDERED: Bacitracin Oint 1 GM U/D Packet TOP ONE (15:07)
[2022-11-20 15:10] LABS: ANION GAP 13.5 mEq/L (7-13)
[2022-11-20] MEDS ORDERED: Bacitracin Oint 1 GM U/D Packet ONE (16:09)
== END 2022-11-20 16:45 | disposition home or self-care (01) ==
LOC: DL.ED 14:02
DX: T25.221A Burn of second degree of right foot, initial encounter (principal); I10 Essential (primary) hypertension; X15.8XXA Contact with other hot household appliances, initial encounter; Y93.G3 Activity, cooking and baking
CPT/HCPCS: 36415; 80053; 83605; 85025; 86140; 87040; 99283; J3490

== ENCOUNTER 2023-02-16 15:15 | Emergency (ER) | payer OTHER ==
[2023-02-16] MEDS ORDERED: Ondansetron 4 MG/2 ML SDV IVPUSH ONE (15:32)
[2023-02-16] MEDS ORDERED: Sodium Chloride 0.9% 1,000 ML IV ONE (15:35)
[2023-02-16] MEDS: Iopamidol 612 MG/ML 100 ML Bottle IVPUSH ONE ×2 (16:16→18:15)
[2023-02-16 17:43] LABS: ANION GAP 17.8 mEq/L (7-13)
== END 2023-02-16 18:41 | disposition left against medical advice (07) ==
LOC: DL.ED 15:15
DX: R10.9 Unspecified abdominal pain (principal); I10 Essential (primary) hypertension
CPT/HCPCS: 36415; 74177; 80053; 83690; 85025; 96361; 96374; 99284; J2405; J7030; Q9967

== ENCOUNTER 2023-02-18 07:39 | Emergency (ER) | payer OTHER ==
[2023-02-18 08:18] LABS: AMPHETAMINES,URINE POSITIVE (NEGATIVE); BARBITURATES,URINE NEGATIVE (NEGATIVE); BENZODIAZEPINE,URINE NEGATIVE (NEGATIVE); MDMA (ECSTASY), URINE NEGATIVE (NEGATIVE); METHADONE,URINE NEGATIVE (NEGATIVE); METHAMPHETAMINES,URINE POSITIVE (NEGATIVE); OPIATES,URINE NEGATIVE (NEGATIVE); OXYCODONE,URINE NEGATIVE (NEGATIVE); PHENCYCLIDINE,URINE NEGATIVE (NEGATIVE); TCA,URINE NEGATIVE (NEGATIVE)
[2023-02-18 08:34] LABS: ACETAMINOPHEN 0 ug/mL (10-30 (Therapeutic)); ANION GAP 16.2 mEq/L (7-13); CHLORIDE,CL 96 mmol/L (98-107); ESTIMATED GFR 72 mL/min (>=60); SODIUM,NA 135 mmol/L (136-145)
== END 2023-02-18 13:27 ==
LOC: DL.ED 07:39
DX: R45.851 Suicidal ideations (principal); I10 Essential (primary) hypertension; Z72.0 Tobacco use; Z20.822 Contact with and (suspected) exposure to COVID-19
CPT/HCPCS: 36415; 80053; 80143; 80179; 80305-QW; 80307; 81001; 85025; 99284; 99285; U0002

== ENCOUNTER 2023-12-01 15:37 | Emergency (ER) | payer OTHER ==
[2023-12-01] MEDS ORDERED: Sodium Chloride 0.9% 10 ML Syringe FLUSH PRN (15:44)
[2023-12-01] MEDS ORDERED: Ketorolac 30 MG/ML SDV IVPUSH ONE (15:47)
[2023-12-01] MEDS ORDERED: Acetaminophen 500 MG Tab PO ONE (15:47)
[2023-12-01] MEDS ORDERED: Sodium Chloride 0.9% 1,000 ML IV ONE (15:47)
[2023-12-01 15:55] LABS: BASOPHILS PERCENT AUTO 0.4 % (0.0-1.0); EOSINOPHILS PERCENT AUTO 1.1 % (1.0-3.0); HEMATOCRIT 39.7 % (40.0-54.0); HEMOGLOBIN 13.7 g/dL (14.0-18.0); MEAN CORPUSCULAR HEMOGLOBIN 33.1 pg (27.0-34.0); MEAN CORPUSCULAR HGB CONC 34.5 g/dL (33.0-35.0); MEAN CORPUSCULAR VOLUME 95.9 fL (80-100); MONOCYTES PERCENT AUTO 16.9 % (2-8); NEUTROPHILS PERCENT AUTO 57.6 % (42.2-75.2); PLATELET COUNT,PLT 85 10^3/uL (150-450); RED BLOOD CELL COUNT 4.14 10^6/uL (4.6-6.2); WHITE BLOOD CELL COUNT,WBC 5.6 10^3/uL (5.0-10.0)
[2023-12-01 16:13] LABS: ALANINE AMINOTRANSFERASE,ALT 160 U/L (16-63); ALBUMIN 2.8 g/dL (3.4-5.0); ALKALINE PHOSPHATASE 158 U/L (46-116); ANION GAP 11.6 mEq/L (7-13); ASPARTATE AMNIOTRANSFERASE,AST 118 U/L (15-37); BILIRUBIN TOTAL 1.5 mg/dL (0.2-1.0); BLOOD UREA NITROGEN,BUN 12 mg/dL (7-18); BUN/CREATININE RATIO 9.8 (No establ ref range); C-REACTIVE PROTEIN 1.15 ng/dL (<=0.50); CALCIUM 9.1 mg/dL (8.5-10.1); CARBON DIOXIDE,CO2 24 mmol/L (21-32); CHLORIDE,CL 103 mmol/L (98-107); CREATININE 1.22 mg/dL (0.70-1.30); EST CRCL DRUG DOSING (CG) 66.97 mL/min; GLUCOSE RANDOM 102 mg/dL (70-99); POTASSIUM,K 3.6 mmol/L (3.5-5.1); PROTEIN TOTAL,TP 7.6 g/dL (6.4-8.2); SODIUM,NA 135 mmol/L (136-145)
[2023-12-01 16:17] LABS: LACTIC ACID 1.6 mmol/L (0.4-2.0)
[2023-12-01 16:20] LABS: A/G RATIO 0.58; ESTIMATED GFR 70 mL/min (>=60); ETHANOL BLOOD MEDICAL < 3 mg/dL (0)
[2023-12-01 16:33] LABS: CORONAVIRUS COVID-19 NAA NEGATIVE (NEGATIVE); INFLUENZA A NAA POSITIVE (NEGATIVE); INFLUENZA B NAA NEGATIVE (NEGATIVE)
== END 2023-12-01 17:16 | disposition home or self-care (01) ==
LOC: DL.ED 15:37
DX: J10.1 Influenza due to other identified influenza virus with other respiratory manifestations (principal); Z20.822 Contact with and (suspected) exposure to COVID-19; I10 Essential (primary) hypertension; Z79.899 Other long term (current) drug therapy
CPT/HCPCS: 0240U; 36415; 71045; 80053; 80307; 82140; 83605; 85025; 86140; 87040; 87081; 87430; 96361; 96374; 99284; 99284-25; A9270-GY; J1885; J3490; J7030

== ENCOUNTER 2024-07-15 02:13 | Emergency (ER) | payer OTHER ==
[2024-07-15] MEDS ORDERED: Sodium Chloride 0.9% 10 ML Syringe FLUSH PRN (02:37)
[2024-07-15] MEDS: Sodium Chloride 0.9% 1,000 ML IV ONE (02:49)
[2024-07-15 02:59] LABS: BASOPHILS PERCENT AUTO 1.7 % (0.0-1.0); EOSINOPHILS PERCENT AUTO 2.4 % (1.0-3.0); HEMATOCRIT 38.3 % (40.0-54.0); LYMPHOCYTES PERCENT AUTO 28.5 % (20.5-50.1); MEAN CORPUSCULAR HEMOGLOBIN 33.9 pg (27.0-34.0); MEAN CORPUSCULAR HGB CONC 33.9 g/dL (33.0-35.0); MONOCYTES PERCENT AUTO 13.2 % (2-8); NEUTROPHILS PERCENT AUTO 54.2 % (42.2-75.2); PLATELET COUNT,PLT 49 10^3/uL (150-450); RED BLOOD CELL COUNT 3.83 10^6/uL (4.6-6.2)
[2024-07-15 03:20] LABS: ALANINE AMINOTRANSFERASE,ALT 55 U/L (16-63); ALBUMIN 2.4 g/dL (3.4-5.0); ALKALINE PHOSPHATASE 114 U/L (46-116); ANION GAP 11.5 mEq/L (7-13); ASPARTATE AMNIOTRANSFERASE,AST 139 U/L (15-37); BILIRUBIN TOTAL 3.2 mg/dL (0.2-1.0); BLOOD UREA NITROGEN,BUN 5 mg/dL (7-18); BUN/CREATININE RATIO 5.3 (No establ ref range); CALCIUM 7.4 mg/dL (8.5-10.1); CARBON DIOXIDE,CO2 25 mmol/L (21-32); CHLORIDE,CL 109 mmol/L (98-107); CREATININE 0.94 mg/dL (0.70-1.30); GLUCOSE RANDOM 102 mg/dL (70-99); POTASSIUM,K 3.5 mmol/L (3.5-5.1); SODIUM,NA 142 mmol/L (136-145)
[2024-07-15 03:21] LABS: A/G RATIO 0.52; ESTIMATED GFR 96 mL/min (>=60); ETHANOL BLOOD MEDICAL 309 mg/dL (0)
== END 2024-07-15 09:49 | disposition home or self-care (01) ==
LOC: DL.ED 02:13
DX: F10.920 Alcohol use, unspecified with intoxication, uncomplicated (principal); I10 Essential (primary) hypertension
CPT/HCPCS: 36415; 70450; 72125; 80053; 80307; 82947; 85025; 96360; 99283; 99285-25; J7030

== ENCOUNTER 2025-06-11 20:41 | Emergency (ER) | payer OTHER ==
[2025-06-11 21:30] LABS: BASOPHILS PERCENT AUTO 0.9 % (0.0-1.0); EOSINOPHILS PERCENT AUTO 2.1 % (1.0-3.0); LYMPHOCYTES PERCENT AUTO 45.7 % (20.5-50.1); MONOCYTES PERCENT AUTO 9.8 % (2-8); NEUTROPHILS PERCENT AUTO 41.5 % (42.2-75.2); PLATELET COUNT,PLT 108 10^3/uL (150-450); RED BLOOD CELL COUNT 4.64 10^6/uL (4.6-6.2); WHITE BLOOD CELL COUNT,WBC 4.3 10^3/uL (5.0-10.0)
[2025-06-11 21:39] LABS: APPEARANCE,URINE CLEAR (CLEAR); GLUCOSE,URINE NEGATIVE (NEGATIVE); OCCULT BLOOD,URINE TRACE-INTACT (NEGATIVE)
[2025-06-11 21:45] LABS: AMPHETAMINES,URINE NEGATIVE (NEGATIVE); BARBITURATES,URINE NEGATIVE (NEGATIVE); MDMA (ECSTASY), URINE NEGATIVE (NEGATIVE); METHAMPHETAMINES,URINE NEGATIVE (NEGATIVE); OPIATES,URINE NEGATIVE (NEGATIVE); OXYCODONE,URINE NEGATIVE (NEGATIVE); PHENCYCLIDINE,URINE NEGATIVE (NEGATIVE); TCA,URINE NEGATIVE (NEGATIVE)
[2025-06-11 21:46] LABS: EPITHELIAL CELLS,URINE RARE /HPF (NOT SEEN)
[2025-06-11 21:59] LABS: A/G RATIO 0.63; ALANINE AMINOTRANSFERASE,ALT 82.0 U/L (16-63); ASPARTATE AMNIOTRANSFERASE,AST 119.0 U/L (15-37); BILIRUBIN TOTAL 1.2 mg/dL (0.2-1.0); BLOOD UREA NITROGEN,BUN 6.0 mg/dL (7-18); CARBON DIOXIDE,CO2 28.0 mmol/L (21-32); CHLORIDE,CL 108.0 mmol/L (98-107); CREATININE 0.96 mg/dL (0.70-1.30); EST CRCL DRUG DOSING (CG) 84.11 mL/min; ESTIMATED GFR 93.0 mL/min (>=60); ETHANOL BLOOD MEDICAL 389.0 mg/dL (0); GLUCOSE RANDOM 114.0 mg/dL (70-99); POTASSIUM,K 3.6 mmol/L (3.5-5.1); PROTEIN TOTAL,TP 7.8 g/dL (6.4-8.2); SODIUM,NA 140.0 mmol/L (136-145)
== END 2025-06-11 22:42 ==
LOC: DL.ED 20:41
DX: F10.220 Alcohol dependence with intoxication, uncomplicated (principal); I10 Essential (primary) hypertension; F17.210 Nicotine dependence, cigarettes, uncomplicated; F43.10 Post-traumatic stress disorder, unspecified; Z59.02 Unsheltered homelessness; Y09 Assault by unspecified means
CPT/HCPCS: 36415; 80053; 80305-QW; 80307; 81001; 85025; 93005; 93010; 99284